=== PATIENT | female | born 1970 | race Caucasian/White ===

== ENCOUNTER 2016-05-05 00:52 | Emergency (ER) | payer MEDICAID, OTHER ==
[~2016-05-05] VITALS: Ht 139.7 cm; Wt 54.4 kg
[~2016-05-05 00:52] MED LIST: CHLO4TAB PO; FLUO10CA65 PO
--- NOTE | 2016-05-05 01:00 | NUR ---
Patient to ER bed 08 to gown for evaluation. Side rails up. Report given to CEE.
[2016-05-05 01:09] VITALS: BP 115/78; PULSE 67; RESP 16; TEMP 98.5; O2SAT 100
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
--- NOTE | 2016-05-05 01:15 | NUR ---
ER at bedside examining patient.
[2016-05-05] MEDS ORDERED: MORPHINE 4 MG/ML INJ. SYRINGE IVP ONE (01:30)
[2016-05-05 01:46] LABS: BILIRUBIN,URINE NEGATIVE (NEGATIVE); CLARITY/URINE CLEAR (CLEAR); COLOR,URINE YELLOW (YELLOW); GLUCOSE,URINE NEGATIVE (NEGATIVE); KETONES,URINE NEGATIVE (NEGATIVE); LEUKOCYTE ESTERASE ,URINE NEGATIVE (NEGATIVE); NITRITE, URINE NEGATIVE (NEGATIVE); PROTEIN URINE NEGATIVE (NEGATIVE); UROBILINOGEN,URINE 0.2 (0.2-1.0)
[2016-05-05 02:02] LABS: BLOOD, URINE TRACE (NEGATIVE)
[2016-05-05 02:05] LABS: BACTERIA,URINE FEW /HPF (None Seen); MUCUS,URINE None Seen /LPF (None Seen); RBC,URINE 0-3 /HPF (0-3); WBC,URINE 0-3 /HPF (0-3)
--- NOTE | 2016-05-05 02:12 | NUR ---
Patient transported to radiology via GURNEY, accompanied by TELEPHONE INFORMATION CLERK.
[2016-05-05 02:15] LABS: BASOPHILS % (AUTO) 0.4 % (0.0-2.0); EOSINOPHILS # (AUTO) 0.3 K/uL (0.0-0.4); EOSINOPHILS % (AUTO) 3.3 % (0.0-4.0); HEMOGLOBIN 13.5 g/dL (12.0-16.0); LYMPHOCYTES % (AUTO) 25.7 % (20.5-51.5); MEAN CORPUSCULAR HEMOGLOBIN 29 pg (27-31); MEAN CORPUSCULAR HGB CONC 35 % (32-36); MEAN CORPUSCULAR VOLUME 83 fL (79.0-98.0); MONOCYTES # (AUTO) 0.6 K/uL (0.0-1.0); MONOCYTES % (AUTO) 8.1 % (1.7-9.3); NEUTROPHILS # (AUTO) 4.7 K/uL (1.8-7.7); NEUTROPHILS % (AUTO) 62.5 % (40.0-70.0); PLATELET COUNT (AUTO) 255 K/uL (130-430); RED BLOOD CELL COUNT(AUTO) 4.72 MIL/uL (4.2-6.2); RED CELL DISTRIBUTION WIDTH 12.2 % (9.0-15.0); WHITE BLOOD COUNT (AUTO) 7.6 K/uL (4.8-10.8)
[2016-05-05 02:23] LABS: CALCIUM 8.9 mg/dL (8.4-11.0); CREATININE 0.59 mg/dL (0.55-1.30); POTASSIUM 3.9 mmol/L (3.5-5.1)
[2016-05-05 02:27] LABS: ALBUMIN 3.9 g/dL (3.4-4.8); TOTAL BILIRUBIN 0.3 mg/dL (0.0-1.0); TOTAL PROTEIN, SERUM 7.4 g/dL (6.4-8.3)
--- NOTE | 2016-05-05 02:30 | NUR ---
Returned from radiology, back to [facility].
--- NOTE | 2016-05-05 03:00 | NUR ---
MEDICATION GIVEN PER MD ORDERS TOLERATED WELL
[2016-05-05 04:02] VITALS: BP 110/67; PULSE 72; RESP 18; TEMP 98.5; O2SAT 100
--- NOTE | 2016-05-05 04:03 | NUR ---
Patient given written and verbal discharge instructions and verbalizes understanding. ER MD discussed with patient the results and treatment provided. Given copies of tests performed in ER. Patient in stable condition. ID arm band removed. IV catheter removed intact and dressing applied, no active bleeding. NO Rx given. Patient educated on pain management and to follow up with PMD. Pain Scale 0/10. Opportunity for questions provided and answered.
== END 2016-05-05 04:02 | disposition home or self-care (01) ==
LOC: SED 00:52
DX: K80.80 Other cholelithiasis without obstruction (principal); E78.00 Pure hypercholesterolemia, unspecified
CPT/HCPCS: 36415; 74176; 80053; 81000; 81025; 82150; 83690; 85025; 96374; 99285; J2270

== ENCOUNTER 2016-06-04 17:33 | Emergency (ER) | payer OTHER ==
[~2016-06-04] VITALS: Ht 139.7 cm; Wt 54.4 kg
[2016-06-04 17:44] VITALS: BP 110/70; PULSE 95; RESP 16; TEMP 100.1; O2SAT 97
--- NOTE | 2016-06-04 17:49 | NUR ---
Patient triaged and placed in waiting room. Patient appears in no acute distress at this time. Accompanied by SELF, awaiting available bed, and MD notified of need for MSE.
--- NOTE | 2016-06-04 20:15 | NUR ---
Patient to Hallway to chair for evaluation. Side rails up. Report given to RN.
--- NOTE | 2016-06-04 20:15 | NUR ---
Patient AAO x4, sitting in chair wearing mask, c/o productive cough, sore throat, and bilateral ear pain 10/06 x 3 days. Patient has been taking Nyquil at night for cough with no relief. Patient temp currently 100.3 oral. No acute distress noted. Will continue to monitor.
[2016-06-04] MEDS ORDERED: IBUPROFEN 800 MG TABLET PO ONE (21:45)
[2016-06-04] MEDS ORDERED: AMOXICILLIN/CLAVULANATE POTASSIUM 875 MG TABLET PO ONE (21:45)
[2016-06-04 22:15] VITALS: BP 115/76; PULSE 90; RESP 18; TEMP 99.5; O2SAT 98
--- NOTE | 2016-06-04 22:15 | NUR ---
Patient given written and verbal discharge instructions and verbalizes understanding. ER ELECTRONICS ASSEMBLER Samantha Yeung discussed with patient the results and treatment provided. Patient in stable condition. ID arm band removed. Rx of Motrin 800 mg, Augmentin and Tessalon Perles given. Patient educated on pain management and to follow up with PMD. Pain Scale . Opportunity for questions provided and answered.
== END 2016-06-04 22:15 | disposition home or self-care (01) ==
LOC: SED 17:33
DX: J01.10 Acute frontal sinusitis, unspecified (principal); H61.893 Other specified disorders of external ear, bilateral; E78.00 Pure hypercholesterolemia, unspecified
CPT/HCPCS: 81025; 99283

== ENCOUNTER 2016-06-21 23:31 | Emergency (ER) | payer OTHER ==
[~2016-06-21] VITALS: Ht 139.7 cm; Wt 52.6 kg
[2016-06-21 23:31] VITALS: BP_SYST 106
[2016-06-22] MEDS ORDERED: FAMOTIDINE 20 MG TABLET PO ONE
[2016-06-22] MEDS ORDERED: predniSONE 1 MG TABLET PO ONE
[2016-06-22] MEDS ORDERED: DIPHENHYDRAMINE HCL 50 MG CAPSULE PO ONE
[2016-06-22] MEDS ORDERED: PREDNISONE 20 MG TABLET ONE (00:12)
[2016-06-22 01:10] VITALS: BP_SYST 102
== END 2016-06-22 01:10 | disposition home or self-care (01) ==
LOC: SED 23:31
DX: L50.9 Urticaria, unspecified (principal); E78.00 Pure hypercholesterolemia, unspecified; K80.80 Other cholelithiasis without obstruction
CPT/HCPCS: 99284; J7512; Q0163

== ENCOUNTER 2016-07-25 19:30 | Emergency (ER) | payer OTHER ==
[~2016-07-25] VITALS: Ht 152.4 cm; Wt 53.1 kg
[2016-07-25 19:45] VITALS: BP 100/61; PULSE 66; RESP 18; TEMP 98.8; O2SAT 97
--- NOTE | 2016-07-25 20:10 | NUR ---
Placed in room 08 . Placed on patient monitor, blood pressure machine and pulse oximeter. To gown for exam. Side rails up. Report given to KRISTOFER Munguia.
--- NOTE | 2016-07-25 20:15 | NUR ---
DR. VICTOR AT BEDSIDE EXAMINING THE PT.
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
--- NOTE | 2016-07-25 20:20 | NUR ---
# 20 gauge angiocath placed to RAC. Use of asceptic technique. Opsite placed over site. Blood return noted. Blood for lab drawn from site. Flushed with 10 cc of normal saline. No evidence of infiltration noted. Patient tolerated well.
[2016-07-25] MEDS ORDERED: NACL 0.9% 1,000 ML IV ONE (20:21)
[2016-07-25] MEDS ORDERED: MORPHINE 4 MG/ML INJ. SYRINGE IVP ONE (20:30)
[2016-07-25 21:01] LABS: BASOPHILS % (AUTO) 0.6 % (0.0-2.0); EOSINOPHILS # (AUTO) 0.2 K/uL (0.0-0.4); EOSINOPHILS % (AUTO) 2.9 % (0.0-4.0); HEMATOCRIT 42.4 % (36-48); HEMOGLOBIN 14.1 g/dL (12.0-16.0); LYMPHOCYTES # (AUTO) 1.5 K/uL (1.0-5.5); LYMPHOCYTES % (AUTO) 19.3 % (20.5-51.5); MEAN CORPUSCULAR HEMOGLOBIN 28 pg (27-31); MEAN CORPUSCULAR HGB CONC 33 % (32-36); MEAN CORPUSCULAR VOLUME 84 fL (79.0-98.0); MONOCYTES # (AUTO) 0.6 K/uL (0.0-1.0); MONOCYTES % (AUTO) 8.2 % (1.7-9.3); NEUTROPHILS # (AUTO) 5.4 K/uL (1.8-7.7); PLATELET COUNT (AUTO) 291 K/uL (130-430); RED BLOOD CELL COUNT(AUTO) 5.06 MIL/uL (4.2-6.2); RED CELL DISTRIBUTION WIDTH 12.7 % (9.0-15.0); WHITE BLOOD COUNT (AUTO) 7.7 K/uL (4.8-10.8)
[2016-07-25 21:03] LABS: CALCIUM 8.9 mg/dL (8.4-11.0); CHLORIDE 105 mmol/L (98-107); CREATININE 0.69 mg/dL (0.55-1.30); GLUCOSE 117 mg/dL (70-99); POTASSIUM 3.5 mmol/L (3.5-5.1); SODIUM SERUM 138 mmol/L (136-145); UREA NITROGEN, BLOOD 6 mg/dL (8-21)
[2016-07-25 21:05] LABS: PROTHROMBIN TIME 10.5 SECS (9.5-12.5)
[2016-07-25 21:07] LABS: GFR AFRICAN AMERICAN 117 mL/min (>90)
[2016-07-25 21:08] LABS: ANION GAP < 3 (5-15)
--- NOTE | 2016-07-25 21:10 | NUR ---
PT. TO THE RESTROOM AMBULATORY TOLERATED WELL
[2016-07-25 21:11] LABS: BILIRUBIN,URINE NEGATIVE (NEGATIVE); BLOOD, URINE NEGATIVE (NEGATIVE); CLARITY/URINE CLEAR (CLEAR); COLOR,URINE YELLOW (YELLOW); GLUCOSE,URINE NEGATIVE (NEGATIVE); KETONES,URINE NEGATIVE (NEGATIVE); LEUKOCYTE ESTERASE ,URINE NEGATIVE (NEGATIVE); NITRITE, URINE NEGATIVE (NEGATIVE); PROTEIN URINE NEGATIVE (NEGATIVE)
[2016-07-25 21:17] LABS: ALANINE AMINOTRANSFERASE 69 U/L (12-78); ALBUMIN 3.9 g/dL (3.4-4.8); AMYLASE 41 U/L (0-100); ASPARTATE AMINOTRANSFERASE 117 U/L (10-37); LIPASE 75 U/L (73-393); TOTAL BILIRUBIN 0.5 mg/dL (0.0-1.0); TOTAL PROTEIN, SERUM 7.5 g/dL (6.4-8.3)
--- NOTE | 2016-07-25 22:00 | NUR ---
pt. out to CT scan via wheelchair
[2016-07-25] MEDS ORDERED: IOHEXOL 100 ML IV ONE (22:02)
--- NOTE | 2016-07-25 22:20 | NUR ---
PT. BACK FROM CT VIA WHEELCHAIR
--- NOTE | 2016-07-25 22:20 | NUR ---
Pt is resting comfortably in bed. VSS. Will continue to monitor via radiographer cardiac catheterization. No distress noted.
[2016-07-25 23:58] VITALS: BP 104/72; PULSE 70; RESP 18; TEMP 98.8; O2SAT 97
--- NOTE | 2016-07-25 23:58 | NUR ---
Patient given written and verbal discharge instructions and verbalizes understanding. ER MD discussed with patient the results and treatment provided. Patient in stable condition. ID arm band removed. IV catheter removed intact and dressing applied, no active bleeding. Rx of Flomax and ibuprofen given. Patient educated on pain management and to follow up with PMD. Pain Scale 2/10. Opportunity for questions provided and answered.
== END 2016-07-25 23:58 | disposition home or self-care (01) ==
LOC: SED 19:30
DX: R33.9 Retention of urine, unspecified (principal); F11.90 Opioid use, unspecified, uncomplicated; E78.00 Pure hypercholesterolemia, unspecified; Z90.49 Acquired absence of other specified parts of digestive tract
CPT/HCPCS: 36415; 74177; 80053; 81003; 82150; 83605; 83690; 84484; 85025; 85610; 87040; 96361; 96374; 99285; J2270; J7030; Q9967

== ENCOUNTER 2016-09-24 21:16 | Emergency (ER) | payer OTHER ==
[~2016-09-24] VITALS: Ht 139.7 cm; Wt 54.4 kg
[2016-09-24] MEDS ORDERED: KETOROLAC TROMETHAMINE 60 MG/2 ML VIAL IM ONE (21:45)
[2016-09-24 21:46] VITALS: BP_SYST 100
--- NOTE | 2016-09-24 22:10 | NUR ---
Patient to shireen bhakta for evaluation. Side rails up.
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
--- NOTE | 2016-09-24 22:20 | NUR ---
ER MARYANN Singh at bedside examining patient.
[2016-09-24 22:50] VITALS: BP_SYST 109
--- NOTE | 2016-09-24 22:50 | NUR ---
Patient given written and verbal discharge instructions and verbalizes understanding. ER MD discussed with patient the results and treatment provided. Patient in stable condition. ID arm band removed. Rx of motrin and flexeril given. Patient educated on pain management and to follow up with PMD. Pain Scale 2/10. Opportunity for questions provided and answered.
== END 2016-09-24 22:50 | disposition home or self-care (01) ==
LOC: SED 21:20
DX: M54.5 Low back pain (principal); E78.00 Pure hypercholesterolemia, unspecified; V89.2XXA Person injured in unspecified motor-vehicle accident, traffic, initial encounter; Y93.89 Activity, other specified; Y92.488 Other paved roadways as the place of occurrence of the external cause; Y99.8 Other external cause status
CPT/HCPCS: 81025; 96372; 99283; J1885

== ENCOUNTER 2018-05-09 19:57 | Emergency (ER) | payer MEDICAID ==
[~2018-05-09] VITALS: Ht 139.7 cm; Wt 57.2 kg
[2018-05-09 20:00] VITALS: BP_SYST 100
[2018-05-09] MEDS ORDERED: KETOROLAC TROMETHAMINE 60 MG/2 ML VIAL IM ONE (20:30)
[2018-05-09 20:59] LABS: BILIRUBIN,URINE NEGATIVE (NEGATIVE); CLARITY/URINE CLEAR (CLEAR); COLOR,URINE YELLOW (YELLOW); GLUCOSE,URINE NEGATIVE (NEGATIVE); KETONES,URINE TRACE (NEGATIVE); LEUKOCYTE ESTERASE ,URINE NEGATIVE (NEGATIVE); NITRITE, URINE NEGATIVE (NEGATIVE); PROTEIN URINE NEGATIVE (NEGATIVE); UROBILINOGEN,URINE 0.2 (0.2-1.0)
[2018-05-09 21:12] LABS: BLOOD, URINE TRACE (NEGATIVE)
[2018-05-09 21:14] LABS: BACTERIA,URINE FEW /HPF (None Seen); CALCIUM OXALATE CRYSTALS,UR 0-10 /HPF (None Seen); MUCUS,URINE None Seen /LPF (None Seen); RBC,URINE 0-3 /HPF (0-3); WBC,URINE 0-3 /HPF (0-3)
[2018-05-09 21:30] VITALS: BP_SYST 100
== END 2018-05-09 21:30 | disposition home or self-care (01) ==
LOC: SED 19:57
DX: S39.012A Strain of muscle, fascia and tendon of lower back, initial encounter (principal); E78.00 Pure hypercholesterolemia, unspecified; Z90.49 Acquired absence of other specified parts of digestive tract
CPT/HCPCS: 81000; 81025; 96372; 99283; J1885

== ENCOUNTER 2018-08-30 23:25 | Emergency (ER) | payer MEDICAID ==
[~2018-08-30] VITALS: Ht 139.7 cm; Wt 58.1 kg
[2018-08-30 23:39] VITALS: BP_SYST 118
--- NOTE | 2018-08-30 23:42 | NUR ---
Tha santiago in ED - 08/30/18 at 2345 by ZULEIMA Russell BURKETT CHP, placed to ER Chair 1. Report given to KRISTOFER More.
[2018-08-31] VITALS: BP_SYST 119
--- NOTE | 2018-08-31 | NUR ---
0000 - Patient to ER bed 6 to gown for evaluation. Side rails up. Report given to KRISTOFER Mcgraw.
--- NOTE | 2018-08-31 00:10 | NUR ---
Pt C/O pimple to LT upper thigh since Thursday. On Thursday the pimple started to ooze puss and pain has worsened. Pt states having clothes over the site exacerbates the pain and discomfort. Denies any other symptoms at this time. Will continue to monitor.
--- NOTE | 2018-08-31 00:42 | NUR ---
ER Dr. Zepeda at bedside examining patient.
[2018-08-31] MEDS ORDERED: SULFAMETHOXAZOLE/TRIMETHOPR DS 1 TABLET PO ONE (01:00)
[2018-08-31] MEDS ORDERED: BACITRACIN 1 GM OINT TP ONE (01:00)
[2018-08-31 01:19] VITALS: BP_SYST 119
--- NOTE | 2018-08-31 01:19 | NUR ---
Patient given written and verbal discharge instructions and verbalizes understanding. ER MD discussed with patient the results and treatment provided. Patient in stable condition. ID arm band removed. Rx of Bactrim given. Patient educated on pain management and to follow up with PMD. Pain Scale 0. Opportunity for questions provided and answered. Medication side effect fact sheet provided.
== END 2018-08-31 01:19 | disposition home or self-care (01) ==
LOC: SED 23:25
DX: L03.116 Cellulitis of left lower limb (principal); E78.00 Pure hypercholesterolemia, unspecified; Z90.49 Acquired absence of other specified parts of digestive tract
CPT/HCPCS: 99283

== ENCOUNTER 2018-09-04 12:41 | Emergency (ER) | payer MEDICAID ==
[~2018-09-04] VITALS: Ht 134.6 cm; Wt 57.2 kg
[2018-09-04 12:58] VITALS: BP_SYST 94
[2018-09-04 14:13] LABS: BASOPHILS # (AUTO) 0.1 K/uL (0.0-0.2); BASOPHILS % (AUTO) 0.8 % (0.0-2.0); EOSINOPHILS # (AUTO) 0.2 K/uL (0.0-0.4); EOSINOPHILS % (AUTO) 3.5 % (0.0-4.0); HEMATOCRIT 40.4 % (36-48); HEMOGLOBIN 13.4 g/dL (12.0-16.0); LYMPHOCYTES # (AUTO) 1.5 K/uL (1.0-5.5); LYMPHOCYTES % (AUTO) 21.8 % (20.5-51.5); MEAN CORPUSCULAR HEMOGLOBIN 28 pg (27-31); MEAN CORPUSCULAR HGB CONC 33 % (32-36); MEAN CORPUSCULAR VOLUME 85 fL (79.0-98.0); MONOCYTES # (AUTO) 0.5 K/uL (0.0-1.0); MONOCYTES % (AUTO) 7.8 % (1.7-9.3); NEUTROPHILS # (AUTO) 4.5 K/uL (1.8-7.7); NEUTROPHILS % (AUTO) 66.1 % (40.0-70.0); PLATELET COUNT (AUTO) 321 K/uL (130-430); RED BLOOD CELL COUNT(AUTO) 4.76 MIL/uL (4.2-6.2); RED CELL DISTRIBUTION WIDTH 13.1 % (9.0-15.0); WHITE BLOOD COUNT (AUTO) 6.8 K/uL (4.8-10.8)
[2018-09-04 14:24] LABS: ANION GAP 8 (5-15); CALCIUM 9.3 mg/dL (8.4-11.0); CHLORIDE 102 mmol/L (98-107); CREATININE 0.59 mg/dL (0.55-1.30); GLUCOSE 92 mg/dL (70-99); POTASSIUM 4.3 mmol/L (3.5-5.1); SODIUM SERUM 134 mmol/L (136-145); UREA NITROGEN, BLOOD 10 mg/dL (8-21)
[2018-09-04 14:29] LABS: ALANINE AMINOTRANSFERASE 30 U/L (12-78); ALBUMIN 3.7 g/dL (3.4-4.8); ASPARTATE AMINOTRANSFERASE 20 U/L (10-37); GFR AFRICAN AMERICAN 139 mL/min (>90); TOTAL BILIRUBIN 0.3 mg/dL (0.0-1.0)
[2018-09-04 14:30] LABS: C-REACTIVE PROTEIN QUANT < 0.2 mg/dL (0-0.5)
[2018-09-04 16:17] VITALS: BP_SYST 102
== END 2018-09-04 16:17 | disposition home or self-care (01) ==
LOC: SED 12:41
DX: L03.116 Cellulitis of left lower limb (principal); E78.00 Pure hypercholesterolemia, unspecified
CPT/HCPCS: 36415; 80053; 85025; 86140; 99283

== ENCOUNTER 2019-05-14 20:37 | Emergency (ER) | payer MEDICAID ==
[~2019-05-14] VITALS: Ht 139.7 cm; Wt 57.2 kg
[2019-05-14 21:03] VITALS: BP_SYST 119
--- NOTE | 2019-05-14 21:09 | NUR ---
Patient triaged and placed in waiting room. VSS and patient appears in no acute distress at this time. Accompanied by daughter, awaiting available bed, and MD notified of need for MSE.
--- NOTE | 2019-05-14 23:25 | NUR ---
Pt wheeled to bed hallway for evaluation
--- NOTE | 2019-05-14 23:32 | NUR ---
ER Dr. Jay at bedside examining patient.
[2019-05-14] MEDS ORDERED: KETOROLAC TROMETHAMINE 60 MG/2 ML VIAL IM ONE (23:45)
--- NOTE | 2019-05-15 | NUR ---
Pt BIB family to ED C/O 12-day history of right shoulder pain. She reports she slipped and reached out her right arm to grab onto something to prevent the fall, and felt a pop. Patient did not fall to the ground. No loss of consciousness or head trauma. Patient saw her PCP who prescribed her Tylenol. She reports Tylenol and Motrin use with no relief. VSS no s/s of acute distress No other complaints noted Resting on gurney rails up
--- NOTE | 2019-05-15 00:13 | NUR ---
shoulder immobilizer placed to right shoulder. patient tolerated well
[2019-05-15 00:20] VITALS: BP_SYST 121
--- NOTE | 2019-05-15 00:20 | NUR ---
Patient given written and verbal discharge instructions and verbalizes understanding. ER MD discussed with patient the results and treatment provided. Patient in stable condition. ID arm band removed. Rx of Tylenol with Codeine and Motrin given. Patient educated on pain management and to follow up with PMD. Pain Scale 0/10 Opportunity for questions provided and answered. Medication side effect fact sheet provided.
== END 2019-05-15 00:20 | disposition home or self-care (01) ==
LOC: SED 20:37
DX: S42.91XA Fracture of right shoulder girdle, part unspecified, initial encounter for closed fracture (principal); E78.00 Pure hypercholesterolemia, unspecified; W01.0XXA Fall on same level from slipping, tripping and stumbling without subsequent striking against object, initial encounter; Y93.89 Activity, other specified; Y92.89 Other specified places as the place of occurrence of the external cause; Y99.8 Other external cause status
CPT/HCPCS: 29105; 73030; 93005; 96372; 99283; J1885

== ENCOUNTER 2020-11-04 17:07 | Emergency (ER) | payer MEDICAID ==
[~2020-11-04] VITALS: Ht 147.3 cm; Wt 58.1 kg
[2020-11-04 17:16] VITALS: BP_SYST 98
[2020-11-04] MEDS: KETOROLAC TROMETHAMINE 15 MG VIAL IM ONE (18:55)
[2020-11-04] MEDS ORDERED: ACET325T PO (19:54)
[2020-11-04] MEDS ORDERED: IBUP-1619 PO (19:54)
[2020-11-04 20:13] VITALS: BP_SYST 98
== END 2020-11-04 20:13 | disposition home or self-care (01) ==
LOC: SED 17:07
DX: M65.4 Radial styloid tenosynovitis [de Quervain] (principal); E78.00 Pure hypercholesterolemia, unspecified; Z79.899 Other long term (current) drug therapy
CPT/HCPCS: 73100; 96372; 99283; J1885; 76376; 99284

== ENCOUNTER 2021-06-15 13:37 | Emergency (ER) | payer MEDICAID ==
[~2021-06-15] VITALS: Ht 152.4 cm; Wt 58.1 kg
[~2021-06-15 13:37] MED LIST changes: +ACET325T PO; -CHLO4TAB PO; -FLUO10CA65 PO; +IBUP-1619 PO
[2021-06-15 13:51] VITALS: BP_SYST 109
[2021-06-15] MEDS ORDERED: MAG HYDROX/AL HYDROX/SIMETH 30 ML, DICYCLOMINE HCL 20 MG, LIDOCAINE VISCOUS 2% 15ML (PO... PO ONE ×3 (14:30)
[2021-06-15 14:44] LABS: BASOPHILS % (AUTO) 0.8 % (0.0-2.0); EOSINOPHILS # (AUTO) 0.2 K/uL (0.0-0.4); EOSINOPHILS % (AUTO) 2.6 % (0.0-4.0); HEMATOCRIT 40.5 % (36-48); HEMOGLOBIN 13.7 g/dL (12.0-16.0); LYMPHOCYTES # (AUTO) 0.7 K/uL (1.0-5.5); LYMPHOCYTES % (AUTO) 11.5 % (20.5-51.5); MEAN CORPUSCULAR HEMOGLOBIN 28 pg (27-31); MEAN CORPUSCULAR HGB CONC 34 % (32-36); MEAN CORPUSCULAR VOLUME 84 fL (79.0-98.0); MONOCYTES # (AUTO) 0.3 K/uL (0.0-1.0); NEUTROPHILS # (AUTO) 4.7 K/uL (1.8-7.7); NEUTROPHILS % (AUTO) 80.1 % (40.0-70.0); PLATELET COUNT (AUTO) 267 K/uL (130-430); RED BLOOD CELL COUNT(AUTO) 4.83 MIL/uL (4.2-6.2); WHITE BLOOD COUNT (AUTO) 5.8 K/uL (4.8-10.8)
[2021-06-15 14:50] LABS: CALCIUM 9.5 mg/dL (8.4-11.0); CREATININE 0.54 mg/dL (0.55-1.30); POTASSIUM 3.7 mmol/L (3.5-5.1)
[2021-06-15 14:57] LABS: ALBUMIN 3.8 g/dL (3.4-4.8); TOTAL BILIRUBIN 0.2 mg/dL (0.0-1.0)
[2021-06-15] MEDS ORDERED: SUCR1TAB78 PO (15:34)
[2021-06-15] MEDS ORDERED: FAMO20TA8 PO (15:34)
[2021-06-15 15:44] VITALS: BP_SYST 120
== END 2021-06-15 15:44 | disposition home or self-care (01) ==
LOC: SED 13:37
DX: R10.12 Left upper quadrant pain (principal); E78.00 Pure hypercholesterolemia, unspecified; Z79.899 Other long term (current) drug therapy
CPT/HCPCS: 36415; 80053; 83690; 85025; 99283; J2001

== ENCOUNTER 2021-08-07 23:15 | Emergency (ER) | payer MEDICAID ==
[~2021-08-07] VITALS: Ht 149.9 cm; Wt 58.1 kg
[~2021-08-07 23:15] MED LIST changes: +FAMO20TA8 PO; +SUCR1TAB78 PO
[2021-08-07 23:25] VITALS: BP_SYST 107
[2021-08-07 23:47] LABS: BILIRUBIN,URINE NEGATIVE (NEGATIVE); BLOOD, URINE NEGATIVE (NEGATIVE); CLARITY/URINE CLEAR (CLEAR); COLOR,URINE YELLOW (YELLOW); GLUCOSE,URINE NEGATIVE (NEGATIVE); KETONES,URINE NEGATIVE (NEGATIVE); LEUKOCYTE ESTERASE ,URINE 1+ (NEGATIVE); NITRITE, URINE NEGATIVE (NEGATIVE); PROTEIN URINE NEGATIVE (NEGATIVE); UROBILINOGEN,URINE 0.2 (0.2-1.0)
[2021-08-07 23:59] LABS: BACTERIA,URINE RARE /HPF (None Seen); RBC,URINE 0-3 /HPF (0-3); WBC,URINE 0-3 /HPF (0-3)
[2021-08-08 00:23] LABS: BASOPHILS % (AUTO) 0.7 % (0.0-2.0); EOSINOPHILS # (AUTO) 0.1 K/uL (0.0-0.4); EOSINOPHILS % (AUTO) 2.4 % (0.0-4.0); HEMATOCRIT 40.7 % (36-48); HEMOGLOBIN 13.8 g/dL (12.0-16.0); LYMPHOCYTES % (AUTO) 32.2 % (20.5-51.5); MEAN CORPUSCULAR HEMOGLOBIN 28 pg (27-31); MEAN CORPUSCULAR HGB CONC 34 % (32-36); MEAN CORPUSCULAR VOLUME 84 fL (79.0-98.0); MONOCYTES # (AUTO) 0.4 K/uL (0.0-1.0); NEUTROPHILS # (AUTO) 3.6 K/uL (1.8-7.7); NEUTROPHILS % (AUTO) 57.7 % (40.0-70.0); PLATELET COUNT (AUTO) 294 K/uL (130-430); RED BLOOD CELL COUNT(AUTO) 4.87 MIL/uL (4.2-6.2); RED CELL DISTRIBUTION WIDTH 12.9 % (9.0-15.0); WHITE BLOOD COUNT (AUTO) 6.3 K/uL (4.8-10.8)
[2021-08-08] MEDS ORDERED: MORPHINE 4 MG INJ. 4 MG/ML VIAL IM ONE (00:30)
[2021-08-08 00:37] LABS: CALCIUM 8.9 mg/dL (8.4-11.0); CREATININE 0.82 mg/dL (0.55-1.30); POTASSIUM 4.1 mmol/L (3.5-5.1)
[2021-08-08 00:43] LABS: ALBUMIN 3.9 g/dL (3.4-4.8); TOTAL BILIRUBIN 0.3 mg/dL (0.0-1.0)
[2021-08-08] MEDS ORDERED: MORPHINE 4 MG INJ. 4 MG/ML VIAL IVP ONE (01:00)
[2021-08-08] MEDS ORDERED: NACL 0.9% 1,000 ML IV ONE (02:00)
[2021-08-08 02:56] VITALS: BP_SYST 130
== END 2021-08-08 02:57 | disposition home or self-care (01) ==
LOC: SED 23:15
DX: R10.11 Right upper quadrant pain (principal)
CPT/HCPCS: 36415; 74176; 76376; 80053; 81000; 83690; 85025; 87086; 96361; 96374; 99284; J2270; J7030

== ENCOUNTER 2021-11-09 23:15 | Emergency (ER) | payer MEDICAID ==
[~2021-11-09] VITALS: Ht 147.3 cm; Wt 58.1 kg
[2021-11-09 23:19] VITALS: BP_SYST 108
--- NOTE | 2021-11-09 23:22 | NUR ---
PATIENT HAS BEEN C/O LEFT LOWER ABDOMINAL PAIN WITH NAUSEA FOR ONE DAY. NO OTHER SYMPTOMS. PATIENT STATES IT COMES AND GOES RANDOMLY. PATIENT AMBULATED TO BED 3 WITHOUT ISSUE AND WAITING TO BE SEEN.
--- NOTE | 2021-11-09 23:25 | NUR ---
Patient to ER bed 8 to gown for evaluation. Side rails up. Report given to Teresa MINER by Zoe MINER.
[2021-11-10] MEDS ORDERED: MAG HYDROX/AL HYDROX/SIMETH 30 ML, DICYCLOMINE HCL 20 MG, LIDOCAINE VISCOUS 2% 15ML (PO... PO ONE ×3 (00:30)
[2021-11-10] MEDS ORDERED: NACL 0.9% 1,000 ML IV ONE (00:30)
[2021-11-10] MEDS ORDERED: ONDANSETRON HCL 4 MG/2 ML VIAL IVP ONE ×2 (00:30)
[2021-11-10] MEDS ORDERED: OMEP40CA20 PO (00:37)
[2021-11-10] MEDS ORDERED: DICY10CA13 PO (00:39)
[2021-11-10] MEDS ORDERED: ANT30 PO (00:39)
[2021-11-10 00:41] LABS: BASOPHILS % (AUTO) 0.8 % (0.0-2.0); EOSINOPHILS # (AUTO) 0.2 K/uL (0.0-0.4); EOSINOPHILS % (AUTO) 3.4 % (0.0-4.0); HEMATOCRIT 37.3 % (36-48); HEMOGLOBIN 12.9 g/dL (12.0-16.0); LYMPHOCYTES # (AUTO) 1.9 K/uL (1.0-5.5); LYMPHOCYTES % (AUTO) 35.9 % (20.5-51.5); MEAN CORPUSCULAR HEMOGLOBIN 29 pg (27-31); MEAN CORPUSCULAR HGB CONC 35 % (32-36); MEAN CORPUSCULAR VOLUME 83 fL (79.0-98.0); MONOCYTES # (AUTO) 0.4 K/uL (0.0-1.0); MONOCYTES % (AUTO) 7.9 % (1.7-9.3); NEUTROPHILS # (AUTO) 2.7 K/uL (1.8-7.7); PLATELET COUNT (AUTO) 270 K/uL (130-430); WHITE BLOOD COUNT (AUTO) 5.2 K/uL (4.8-10.8)
[2021-11-10 01:00] LABS: CALCIUM 9.5 mg/dL (8.4-11.0); CREATININE 0.73 mg/dL (0.55-1.30); POTASSIUM 3.3 mmol/L (3.5-5.1)
--- NOTE | 2021-11-10 01:02 | NUR ---
ED MD AT BEDSIDE. PT C/O LLQ PAIN X 1 DAY. PT DENIES DIARRHEA. PT HAS NAUSEA AND VOMITING. PT NOT ACTIVELY VOMITING. PT IS AMBULATORY WITH STEADY GAIT. PT IS SPEAKING FULL SENTENCES. PT DENIES ANY PMHX NO SIGNS OF DISTRESS AT THIS TIME
[2021-11-10 01:12] LABS: ALBUMIN 3.4 g/dL (3.4-4.8); TOTAL BILIRUBIN 0.3 mg/dL (0.0-1.0)
[2021-11-10 01:45] LABS: BILIRUBIN,URINE NEGATIVE (NEGATIVE); BLOOD, URINE NEGATIVE (NEGATIVE); CLARITY/URINE CLEAR (CLEAR); COLOR,URINE YELLOW (YELLOW); GLUCOSE,URINE NEGATIVE (NEGATIVE); KETONES,URINE NEGATIVE (NEGATIVE); LEUKOCYTE ESTERASE ,URINE NEGATIVE (NEGATIVE); NITRITE, URINE NEGATIVE (NEGATIVE); PROTEIN URINE NEGATIVE (NEGATIVE); UROBILINOGEN,URINE 0.2 (0.2-1.0)
[2021-11-10 02:05] VITALS: BP_SYST 110
--- NOTE | 2021-11-10 02:20 | NUR ---
Patient given written and verbal discharge instructions and verbalizes understanding. ER MD discussed with patient the results and treatment provided. Patient in stable condition. ID arm band removed. IV catheter removed intact and dressing applied, no active bleeding. Rx of MAALOX, DYCOCLOMINE given. Patient educated on pain management and to follow up with PMD. Pain Scale . Opportunity for questions provided and answered. Medication side effect fact sheet provided.
== END 2021-11-10 02:20 | disposition home or self-care (01) ==
LOC: SED 23:15
DX: K29.70 Gastritis, unspecified, without bleeding (principal); R10.12 Left upper quadrant pain; Z87.11 Personal history of peptic ulcer disease; Z79.899 Other long term (current) drug therapy
CPT/HCPCS: 99284; 80053; 83690; 85025; 36415; 81003; 96374; 96361; 74021; J2001; J2405; J7030

== ENCOUNTER 2022-04-25 21:28 | Emergency (ER) | payer MEDICAID ==
[~2022-04-25] VITALS: Ht 147.3 cm; Wt 57.2 kg
[~2022-04-25 21:28] MED LIST changes: +ANT30 PO; +DICY10CA13 PO; +OMEP40CA20 PO; +SUCR1TAB2 PO; -SUCR1TAB78 PO
[2022-04-25 22:03] VITALS: BP_SYST 122
--- NOTE | 2022-04-25 23:15 | NUR ---
ER Dr. BRINK at bedside examining patient.
[2022-04-25] MEDS ORDERED: NAPR-688 PO (23:25)
[2022-04-25] MEDS ORDERED: TRAM50TA2 PO (23:25)
--- NOTE | 2022-04-25 23:30 | NUR ---
Placed in room 5 . Placed on site monitor, blood pressure machine and pulse oximeter. To gown for exam. Side rails up. Report given to KRISTOFER APTEL.
--- NOTE | 2022-04-25 23:37 | NUR ---
PT IS AA&OX4. AFEBRILE. NAD. AMBULATORY W/ STEADY GAIT. PER PT, HER BUE PAIN STARTED IN FEB 2022. [facility].
--- NOTE | 2022-04-25 23:38 | NUR ---
Patient given written and verbal discharge instructions and verbalizes understanding. ER MD discussed with patient the results and treatment provided. Patient in stable condition. ID arm band removed. Rx of NAPROXEN & TRAMADOL given. Patient educated on pain management and to follow up with PMD. Pain Scale 0/10. Opportunity for questions provided and answered. Medication side effect fact sheet provided.
== END 2022-04-25 23:36 | disposition home or self-care (01) ==
LOC: SED 21:28
DX: M77.8 Other enthesopathies, not elsewhere classified (principal); M79.621 Pain in right upper arm; Z79.899 Other long term (current) drug therapy
CPT/HCPCS: 99283

== ENCOUNTER 2022-07-11 22:40 | Emergency (ER) | payer MEDICAID ==
[~2022-07-11] VITALS: Ht 137.2 cm; Wt 58.1 kg
[~2022-07-11 22:40] MED LIST changes: +NAPR-688 PO; +TRAM50TA2 PO
[2022-07-11 22:49] VITALS: BP_SYST 106
--- NOTE | 2022-07-11 22:53 | NUR ---
Patient triaged and placed in waiting room. VSS and patient appears in no acute distress at this time. awaiting available bed, and MD notified of need for MSE.
--- NOTE | 2022-07-11 23:15 | NUR ---
ER at TRIAGE examining patient.
[2022-07-11] MEDS ORDERED: KETOROLAC TROMETHAMINE 15 MG VIAL IM ONE (23:30)
[2022-07-11] MEDS ORDERED: methocarbamoL 500 MG TABLET PO ONE (23:30)
[2022-07-11] MEDS ORDERED: METH-800 PO (23:41)
--- NOTE | 2022-07-12 00:02 | NUR ---
Patient given written and verbal discharge instructions and verbalizes understanding. ER MD discussed with patient the results and treatment provided. Patient in stable condition. ID arm band removed. Rx of METHOCARBAMOL given. Patient educated on pain management and to follow up with PMD. Pain Scale 1/10 TOLERABLE. Opportunity for questions provided and answered. Medication side effect fact sheet provided.
== END 2022-07-11 23:59 | disposition home or self-care (01) ==
LOC: SED 22:40
DX: M25.511 Pain in right shoulder (principal); Z79.899 Other long term (current) drug therapy
CPT/HCPCS: 99283; 96372; J1885

== ENCOUNTER 2022-10-10 07:49 | Emergency (ER) | payer MEDICAID ==
[~2022-10-10] VITALS: Ht 127 cm; Wt 58.5 kg
[~2022-10-10 07:49] MED LIST changes: +METH-800 PO
[2022-10-10 08:15] VITALS: BP_SYST 104; PULSE 61; RESP 16; TEMP 97.4; O2SAT 99
--- NOTE | 2022-10-10 08:32 | NUR ---
Patient to ER bed 2 for evaluation. Side rails up. Report given to Serina charge nurse.
--- NOTE | 2022-10-10 08:33 | NUR ---
BIBA C/O ALLERGIC REACTION STARTED 2AM. GENERALIZED RASHES AND REDNESS NOTED. NO HEADACHE, DENIES N/V/D. PT VITALLY STABLE, NO WHEEZES AUSCULTATED. DR LA ON BEDSIDE FOR EXAMINATION. A/OX4, GCS15, AMBULATORY.
[2022-10-10] MEDS ORDERED: EPINEPHRINE HCL/PF 1 MG/ML AMP IM ONE (08:45)
[2022-10-10 10:00] VITALS: BP_SYST 104; PULSE 71; O2SAT 95
[2022-10-10] MEDS ORDERED: DIPH25CA83 PO (10:26)
[2022-10-10] MEDS ORDERED: PRED20TA PO (10:26)
--- NOTE | 2022-10-10 10:50 | NUR ---
Patient given written and verbal discharge instructions and verbalizes understanding. WALTER LA MD discussed with patient the results and treatment provided. Patient in stable condition. ID arm band removed. Rx of given. Patient educated on pain management and to follow up with PMD. Pain Scale . Opportunity for questions provided and answered. Medication side effect fact sheet provided.
== END 2022-10-10 10:50 | disposition home or self-care (01) ==
LOC: SED 07:49
DX: L23.9 Allergic contact dermatitis, unspecified cause (principal); R21 Rash and other nonspecific skin eruption; Z79.899 Other long term (current) drug therapy
CPT/HCPCS: 99283; 96372; J0171

== ENCOUNTER 2023-01-02 21:58 | Emergency (ER) | payer MEDICAID ==
[~2023-01-02] VITALS: Ht 147.3 cm; Wt 58.1 kg
[~2023-01-02 21:58] MED LIST changes: +DICY-14 PO; -DICY10CA13 PO; +DIPH25CA83 PO; +PRED20TA PO
[2023-01-02 22:03] VITALS: BP_SYST 108; PULSE 65; RESP 16; TEMP 97.3; O2SAT 99
[2023-01-03] MEDS ORDERED: IBUP-1969 PO (00:25)
[2023-01-03] MEDS ORDERED: KETOROLAC TROMETHAMINE 60 MG/2 ML VIAL IM ONE (00:30)
[2023-01-03 00:40] VITALS: BP_SYST 108; PULSE 65; RESP 16; TEMP 97.3; O2SAT 99
== END 2023-01-03 00:40 | disposition home or self-care (01) ==
LOC: SED 21:58
DX: R07.89 Other chest pain (principal); M79.18 Myalgia, other site; Z79.899 Other long term (current) drug therapy
CPT/HCPCS: 99283; 96372; J1885

== ENCOUNTER 2023-03-21 18:14 | Emergency (ER) | payer MEDICAID ==
[~2023-03-21] VITALS: Ht 139.7 cm; Wt 56.7 kg
[~2023-03-21 18:14] MED LIST changes: +IBUP-1969 PO
[2023-03-21 19:15] VITALS: BP_SYST 118; PULSE 68; RESP 18; TEMP 98.7; O2SAT 98
[2023-03-21 21:01] LABS: BASOPHILS # (AUTO) 0.1 K/uL (0.0-0.2); BASOPHILS % (AUTO) 0.8 % (0.0-2.0); EOSINOPHILS # (AUTO) 0.3 K/uL (0.0-0.4); EOSINOPHILS % (AUTO) 3.4 % (0.0-4.0); HEMATOCRIT 41.4 % (36-48); HEMOGLOBIN 13.9 g/dL (12.0-16.0); LYMPHOCYTES # (AUTO) 2.3 K/uL (1.0-5.5); LYMPHOCYTES % (AUTO) 30.1 % (20.5-51.5); MEAN CORPUSCULAR HEMOGLOBIN 28 pg (27-31); MEAN CORPUSCULAR HGB CONC 34 % (32-36); MEAN CORPUSCULAR VOLUME 84 fL (79.0-98.0); MONOCYTES # (AUTO) 0.5 K/uL (0.0-1.0); MONOCYTES % (AUTO) 6.8 % (1.7-9.3); NEUTROPHILS # (AUTO) 4.4 K/uL (1.8-7.7); NEUTROPHILS % (AUTO) 58.9 % (40.0-70.0); PLATELET COUNT (AUTO) 312 K/uL (130-430); RED BLOOD CELL COUNT(AUTO) 4.92 MIL/uL (4.2-6.2); RED CELL DISTRIBUTION WIDTH 13.5 % (9.0-15.0); WHITE BLOOD COUNT (AUTO) 7.5 K/uL (4.8-10.8)
[2023-03-21 21:16] LABS: CALCIUM 9.2 mg/dL (8.4-11.0); CREATININE 0.62 mg/dL (0.55-1.30); POTASSIUM 3.3 mmol/L (3.5-5.1)
[2023-03-21 21:53] LABS: BILIRUBIN,URINE NEGATIVE (NEGATIVE); BLOOD, URINE NEGATIVE (NEGATIVE); CLARITY/URINE CLEAR (CLEAR); COLOR,URINE YELLOW (YELLOW); GLUCOSE,URINE NEGATIVE (NEGATIVE); KETONES,URINE NEGATIVE (NEGATIVE); NITRITE, URINE NEGATIVE (NEGATIVE); PROTEIN URINE NEGATIVE (NEGATIVE); UROBILINOGEN,URINE 0.2 (0.2-1.0)
[2023-03-21 22:00] LABS: LEUKOCYTE ESTERASE ,URINE TRACE (NEGATIVE)
[2023-03-21 22:01] LABS: BACTERIA,URINE RARE /HPF (None Seen); RBC,URINE 0-3 /HPF (0-3)
[2023-03-21 22:02] LABS: CALCIUM OXALATE CRYSTALS,UR 0-10 /HPF (None Seen); MUCUS,URINE None Seen /LPF (None Seen)
[2023-03-21] MEDS ORDERED: CEPH-548 PO ×2 (22:43→23:33)
[2023-03-21] MEDS ORDERED: IBUP-2018 PO ×2 (22:43→23:33)
[2023-03-21] MEDS ORDERED: KETOROLAC TROMETHAMINE 30 MG VIAL IM ONE (22:45)
[2023-03-21 23:35] VITALS: BP_SYST 121; PULSE 72; RESP 20; TEMP 98.7; O2SAT 99
== END 2023-03-21 23:35 | disposition home or self-care (01) ==
LOC: SED 18:14
DX: N39.0 Urinary tract infection, site not specified (principal); R51.9 Headache, unspecified; R39.11 Hesitancy of micturition; Z79.899 Other long term (current) drug therapy
CPT/HCPCS: 99283; 80048; 81001; 85025; 36415; 81025; 96372; 81000; 81015; J1885

== ENCOUNTER 2023-09-26 21:09 | Emergency (ER) | payer MEDICAID ==
[~2023-09-26] VITALS: Ht 139.7 cm; Wt 57.6 kg
[~2023-09-26 21:09] MED LIST changes: +BISM262T15 PO; +CEPH-548 PO; +IBUP-2018 PO
[2023-09-26 21:45] VITALS: BP_SYST 112; PULSE 57; RESP 16; TEMP 96.7; O2SAT 100
[2023-09-26 22:35] VITALS: PULSE 57; RESP 16; TEMP 96.7; O2SAT 100
[2023-09-26] MEDS: CYCLOBENZAPRINE HCL 10 MG TABLET (FLEXERIL) PO ONE (23:42)
[2023-09-26] MEDS: ACETAMINOPHEN 500 MG TABLET PO ONE (23:42)
[2023-09-26] MEDS: LIDOCAINE PATCH 5% 1 EA TP ONE (23:42)
[2023-09-26] MEDS: KETOROLAC TROMETHAMINE 30 MG VIAL IM ONE (23:42)
[2023-09-27 00:57] LABS: BILIRUBIN,URINE NEGATIVE (NEGATIVE); BLOOD, URINE NEGATIVE (NEGATIVE); CLARITY/URINE CLEAR (CLEAR); COLOR,URINE YELLOW (YELLOW); GLUCOSE,URINE NEGATIVE (NEGATIVE); KETONES,URINE NEGATIVE (NEGATIVE); LEUKOCYTE ESTERASE ,URINE TRACE (NEGATIVE); NITRITE, URINE NEGATIVE (NEGATIVE); PROTEIN URINE NEGATIVE (NEGATIVE); UROBILINOGEN,URINE 0.2 (0.2-1.0)
[2023-09-27 01:25] LABS: BACTERIA,URINE RARE /HPF (None Seen); RBC,URINE 0-3 /HPF (0-3); WBC,URINE 0-3 /HPF (0-3)
[2023-09-27] MEDS ORDERED: CYCL10TA24 PO (01:28)
[2023-09-27] MEDS ORDERED: LIDO1ADH22 TP (01:28)
[2023-09-27 01:37] VITALS: BP_SYST 106
== END 2023-09-27 01:37 | disposition home or self-care (01) ==
LOC: SED 21:09
DX: M54.50 Low back pain, unspecified (principal); R30.0 Dysuria; Z88.8 Allergy status to other drugs, medicaments and biological substances; Z79.899 Other long term (current) drug therapy; Z79.2 Long term (current) use of antibiotics
CPT/HCPCS: 99284; 81001; 87086; 96372; J1885; 81000; 81015